=== PATIENT | female | born 1975 | race Asian ===

== ENCOUNTER 2018-10-21 14:17 | Emergency (ER) | payer SELFPAY ==
[~2018-10-21] VITALS: Ht 160 cm; Wt 51.3 kg
[2018-10-21 15:27] VITALS: BP 121/77; Ht 160 cm; Wt 51.3 kg
== END 2018-10-21 19:53 | disposition left against medical advice (07) ==
LOC: ED 14:17
DX: Z53.21 Procedure and treatment not carried out due to patient leaving prior to being seen by health care provider (principal)